=== PATIENT | female | born 1945 | race Caucasian/White ===

== ENCOUNTER 2022-01-08 14:23 | Inpatient (IN) | payer OTHER, BC ==
[2022-01-08] MEDS ORDERED: ALBUTEROL 2.5 MG/3 ML NEB SOL ONE ×2 (14:57→21:13)
[2022-01-08] MEDS ORDERED: LEVALBUTEROL 1.25 MG/3 ML NEB ONE (14:57)
[2022-01-08] MEDS ORDERED: METHYLPREDNISOLONE 125 MG INJ ONE (14:57)
[2022-01-08 15:11] LABS: Absolute Lymphocytes (CBC) 0.2 K/uL (0.7-4.9); Lymphocytes % 2.1 % (15.3-44.8); MCV 98.3 fL (80-100); MPV 8.2 fL (7.6-11.3); RBC Red Blood Cell Count 3.66 M/uL (3.86-4.86)
[2022-01-08 15:24] LABS: Protime INR 1.2
[2022-01-08 15:35] LABS: ALT/SGPT 15 U/L (12-78); AST/SGOT 14 U/L (15-37); Albumin 2.5 g/dL (3.4-5.0); Alkaline Phosphatase 84 U/L (45-117); BUN Blood Urea Nitrogen 32 mg/dL (7-18); Bilirubin Direct 0.2 mg/dL (0-0.2); Bilirubin Total 0.4 mg/dL (0.2-1.0); Glomerular Filtration Rate 96 ml/min (=/>90); Glucose Level 173 mg/dL (74-106); Magnesium 2.3 mg/dL (1.8-2.4); NT PRO-BNP 975 pg/mL (<450); Potassium 4.1 mmol/L (3.5-5.1); Protein, Total 7.4 g/dL (6.4-8.2); Sodium Level 141 mmol/L (136-145); Troponin High Sensitivity 23.1 pg/mL (<58.9)
[2022-01-08 15:38] LABS: Bicarbonate > 45 mmol/L (21-32)
--- NOTE | 2022-01-08 15:55 | RAD REPORT ---
EXAM DESCRIPTION: RAD - Chest Single View - 01/08/2022 3:39 pm CLINICAL HISTORY: SOB Chest pain. COMPARISON: CHEST SINGLE VIEW dated 06/16/2013; CHEST SINGLE VIEW dated 06/15/2013; CHEST PA AND LAT 2 VIEW dated 06/14/2013; CHEST PA AND LAT 2 VIEW dated 10/06/2012 FINDINGS: Portable technique limits examination quality. There is a moderate sized area of lung opacifications in the right upper lobe, likely representing pn eumonia. Mild underlying COPD is present. The heart is normal in size. After appropriate treatment, f ollow-up films to document clearance would be recommended. IMPRESSION: Suspected right upper lobe pneumonia.
[2022-01-08] MEDS ORDERED: Levofloxacin500mg IV 500 MG/100 ML BAG IV ONE (16:32)
--- NOTE | 2022-01-08 17:10 | ER ---
Nurse's Notes [facility] Name: Zina Valdez Age: 76 yrs Sex: Female : 1945 Arrival Date: 01/08/2022 Time: 14:24 Bed 23 Private MD: Diagnosis: Other pneumonia, unspecified organism;COPD/ Chronic obstructive pulmonary disease with acute lower respiratory infection Presentation: 01/08 14:25 Chief complaint: EMS states: SENT FROM DR RITCHIE OFFICE FOR HYPOXIA, 76% ON ROOM AIR. bp Coronavirus screen: At this time, the client does not indicate any symptoms associated with coronavirus-19. Ebola Screen: No symptoms or risks identified at this time. Initial Sepsis Screen: Does the patient meet any 2 criteria? HR > 90 bpm. No. Patient's initial sepsis screen is negative. Does the patient have a suspected source of infection? No. Patient's initial sepsis screen is negative. Risk Assessment: Do you want to hurt yourself or someone else? Patient reports no desire to harm self or others. Onset of symptoms was January 08, 2022. Care prior to arrival: Glucose check: 203. 14:25 Method Of Arrival: EMS: [facility] bp 14:25 Acuity: LUIGI 2 bp Triage Assessment: 14:26 General: Appears distressed, uncomfortable, slender, Behavior is calm, cooperative, bp appropriate for age. Pain: Denies pain. EENT: No deficits noted. Neuro: Level of Consciousness is awake, alert, obeys commands, Oriented to Appropriate for age. Cardiovascular: Rhythm is sinus tachycardia. Respiratory: Reports shortness of breath at rest on exertion Onset: The symptoms/episode began/occurred today, the patient has moderate shortness of breath. GI: No signs and/or symptoms were reported involving the gastrointestinal system. : No signs and/or symptoms were reported regarding the genitourinary system. Derm: No deficits noted. Musculoskeletal: No deficits noted. Historical: - Allergies: 14:26 PENICILLINS; bp 14:26 Iodine; bp - PMHx: 14:26 Chronic obstructive lung disease; bp - Immunization history:: Adult Immunizations up to date. - Social history:: Smoking status: unknown. Screenin:30 Abuse screen: Denies threats or abuse. Denies injuries from another. Nutritional bp screening: No deficits noted. Tuberculosis screening: No symptoms or risk factors identified. Fall Risk None identified. Assessment: 14:30 General: SEE TRIAGE NOTE. bp 14:43 Cardiovascular: No deficits noted. Respiratory: Airway is patent Respiratory effort is jh6 even, labored, Respiratory pattern is regular, symmetrical, Breath sounds with wheezes bilaterally. in right upper lobe, left upper lobe, left posterior upper lobe and right posterior upper lobe. 15:41 General: provider notified of critical bicarb level being >45. ap3 16:10 General: pt placed on BiPAP and tolerated well, O2 stat was 94% with Venti mask at 50% jh6 but not helping overall respiratory difficulty. Vital Signs: 14:25 BP 131 / 69; Pulse 103; Resp 24; Temp 99; Pulse Ox 65% on R/A; bp 15:02 BP 113 / 83; Pulse 101; Resp 20; Pulse Ox 100% on Nebulizer Mask; jh6 16:10 BP 110 / 61; Pulse 117; Resp 20; Pulse Ox 100% on BiPAP; Pain 0/10; jh6 17:00 BP 129 / 67; Pulse 117; Resp 18; Pulse Ox 100% on BiPAP; Weight 54.43 kg; Pain 0/10; jh6 18:00 BP 124 / 71; Pulse 109; Resp 18; Pulse Ox 91% on 4 lpm NC; Pain 0/10; jh6 ED Course: 14:24 Patient arrived in ED. bp 14:26 Ric Turner PA is PHCP. cp 14:26 Ric Rivera MD is Attending Physician. cp 14:26 Triage completed. bp 14:26 Arm band placed on. bp 14:30 Patient has correct armband on for positive identification. Bed in low position. Call bp light in reach. Side rails up X2. 14:39 Abi Hodgson, RN is Primary Nurse. jh6 14:39 Inserted saline lock: 22 gauge in right antecubital area, using aseptic technique. jh6 Blood collected. 15:01 Initial lab(s) drawn, by me, sent to lab. Second set of blood cultures drawn EKG done, jh6 by ED staff, reviewed by Ric Rivera MD COVID swab sent to lab. Flu and/or RSV swab sent to lab. 15:40 XRAY Chest (1 view) In Process Unspecified. EDMS 17:09 Abad Ritchie MD is Hospitalizing Provider. cp 07/01 02:57 No provider procedures requiring assistance completed. Patient admitted, IV remains in as6 place. 07:16 Primary Nurse role handed off by Abi Hodgson, RN jl7 Administered Medications: 01/08 15:00 Drug: SOLU-Medrol (methylPrednisoLONE) 125 mg Route: IVP; Site: right antecubital; jh6 16:30 Follow up: Response: No adverse reaction jh6 15:00 Drug: Xopenex (levalbuterol) (3) 1.25 mg Route: Inhalation; jh6 16:30 Follow up: Response: No adverse reaction jh6 15:01 Drug: AtroVENT (ipratropium) Aerosol 0.5 mg Route: Inhalation; jh6 16:30 Follow up: Response: No adverse reaction jh6 16:30 Drug: LevaQUIN (levofloxacin) 500 mg Volume: 100 ml; Route: IVPB; Infused Over: 60 jh6 mins; Site: right antecubital; 17:00 Follow up: IV Status: Completed infusion jh6 18:47 Drug: vancoMYCIN 500 mg Route: IVPB; Infused Over: 1 hrs; Site: right antecubital; jh6 19:17 Drug: Lovenox (enoxaparin) 1 mg/kg Route: Sub-Q; Site: left lower abdomen; aa9 19:17 Follow up: Response: No adverse reaction aa9 Medication: 14:30 VIS not applicable for this client. bp Outcome: 17:10 Decision to Hospitalize by Provider. 01/09 02:57 Admitted to ER Hold. Please see [facility] for further documentation. as6 Condition: stable Instructed on the need for admit. 14:33 Patient left the ED. ap3 Signatures: Dispatcher [employer] EDMS Ric Turner PA PA cp Leal, Jahala RN RN jl7 Srikanth Jiménez RN RN bp Marycarmen Malone RN RN ap3 Terry Sauer RN RN as6 Abi Hodgson, NATHANIEL ARMSTRONG jh6 Jacey Decker, RN RN aa9
--- NOTE | 2022-01-08 17:10 | EDPHYS ---
Physician Documentation [facility] Name: Zina Valdez Age: 76 yrs Sex: Female : 1945 Arrival Date: 01/08/2022 Time: 14:24 Bed 23 Private MD: ED Physician Ric Rivera HPI: 01/08 14:40 This 76 yrs old Female presents to ER via EMS with complaints of Shortness Of Breath. cp 14:40 The patient has shortness of breath at rest. cp 14:40 Onset: The symptoms/episode began/occurred gradually. cp 14:40 Duration: The symptoms are continuous, and are steadily getting worse. Associated signs cp and symptoms: Pertinent negatives: chest pain, productive cough, diaphoresis, fever, hemoptysis. Severity of symptoms: in the emergency department the symptoms are unchanged despite home interventions. Historical: - Allergies: 14:26 PENICILLINS; bp 14:26 Iodine; bp - PMHx: 14:26 Chronic obstructive lung disease; bp - Immunization history:: Adult Immunizations up to date. - Social history:: Smoking status: unknown. ROS: 14:45 Constitutional: Negative for fever. cp 14:45 Eyes: Negative for injury, pain, redness, and discharge. cp 14:45 ENT: Negative for drainage from ear(s), ear pain, sore throat, difficulty swallowing, difficulty handling secretions. 14:45 Cardiovascular: Negative for chest pain, edema. 14:45 Respiratory: Positive for cough, "sounds productive", shortness of breath, at rest. Negative for wheezing. 14:45 Abdomen/GI: Negative for abdominal pain, vomiting, diarrhea, constipation. 14:45 Back: Negative for pain at rest, pain with movement. 14:45 : Negative for urinary symptoms. 14:45 Skin: Negative for cellulitis, rash. 14:45 Neuro: Negative for altered mental status, headache, syncope, weakness. 14:45 All other systems are negative. Exam: 14:42 ECG was reviewed by the Attending Physician. cp 14:50 Constitutional: The patient appears alert, awake, non-diaphoretic, non-toxic, well cp developed, well nourished, in obvious distress, moderately distressed. 14:50 Head/Face: Normocephalic, atraumatic. cp 14:50 Eyes: Periorbital structures: appear normal, Conjunctiva: normal, no exudate, no injection, Sclera: no appreciated abnormality, Lids and lashes: appear normal, bilaterally. 14:50 ENT: External ear(s): are unremarkable, Nose: is normal, Mouth: Lips: moist, Oral mucosa: moist, Posterior pharynx: Airway: no evidence of obstruction, patent. 14:50 Neck: ROM/movement: is normal, is supple, without pain, no range of motions limitations, no meningismus. 14:50 Chest/axilla: Inspection: normal, Palpation: is normal, no crepitus, no tenderness. 14:50 Cardiovascular: Rate: tachycardic, Rhythm: regular, Edema: is not appreciated, JVD: is not appreciated. 14:50 Respiratory: moderate respiratory distress is noted, Respirations: shallow respirations, that is moderate, Breath sounds: decreased breath sounds, that are moderate, throughout, stridor, is not appreciated, wheezing: that is mild, is heard diffusely, Respiratory rate: 25 14:50 Abdomen/GI: Inspection: abdomen appears normal, Palpation: abdomen is soft and non-tender, in all quadrants. 14:50 Back: pain, is absent, ROM is normal. 14:50 Skin: cellulitis, is not appreciated, no rash present. 14:50 Neuro: Orientation: to person, place \\T\\ time. Mentation: able to follow commands, slow to respond, Motor: moves all fours, general weakness with no focal deficits, Sensation: no obvious gross deficits. Vital Signs: 14:25 BP 131 / 69; Pulse 103; Resp 24; Temp 99; Pulse Ox 65% on R/A; bp 15:02 BP 113 / 83; Pulse 101; Resp 20; Pulse Ox 100% on Nebulizer Mask; jh6 16:10 BP 110 / 61; Pulse 117; Resp 20; Pulse Ox 100% on BiPAP; Pain 0/10; jh6 17:00 BP 129 / 67; Pulse 117; Resp 18; Pulse Ox 100% on BiPAP; Weight 54.43 kg; Pain 0/10; jh6 18:00 BP 124 / 71; Pulse 109; Resp 18; Pulse Ox 91% on 4 lpm NC; Pain 0/10; jh6 MDM: 14:26 Patient medically screened. [facility] 17:05 Data reviewed: vital signs, nurses notes, lab test result(s), EKG, radiologic studies, cp plain films, I have discussed the patient's presentation/case with the attending Emergency Department Physician; and as a result, I will admit patient. 17:05 Antibiotic administration: Levaquin. Data interpreted: director of casework services: rhythm is normal sinus rhythm, Pulse oximetry: on BIPAP is 100 %. Interpretation: acceptable, Plan: will plan to intubate. Test interpretation: by ED physician or midlevel provider: ECG, plain radiologic studies. 17:08 Physician consultation: Abad Ritchie MD was called at 17:08, left message on voicemail. cp 17:40 Physician consultation: Abad Ritchie MD was called at 17:40, left message on voicemail. cp 18:55 Physician consultation: Abad Ritcihe MD was contacted at 18:50, regarding admission, to the ICU, patient's condition, would like further tests performed, CT scan. 01/08 14:40 Order name: Basic Metabolic Panel; Complete Time: 15:41 01/08 16:19 Interpretation: Normal except: CL 93; CO2 > 45; GLUC 173; BUN 32; CRE 0.52. 01/08 14:40 Order name: CBC with Diff; Complete Time: 15:41 01/08 16:20 Interpretation: Normal except: RBC 3.66; HGB 11.1; MCHC 30.8; MIRIAM% 87.3; LYM% 2.1; NEUT cp A 8.3; LYMA 0.2. 01/08 14:40 Order name: LFT's; Complete Time: 15:41 01/08 14:40 Order name: Magnesium; Complete Time: 15:41 01/08 14:40 Order name: NT PRO-BNP; Complete Time: 15:41 01/08 14:40 Order name: PT-INR; Complete Time: 15:41 01/08 14:40 Order name: Troponin HS; Complete Time: 15:41 01/08 14:40 Order name: COVID-19 SARS RT PCR (Document "Date of Onset" if Symptomatic); Complete cp Time: 16:58 01/08 16:58 Interpretation: Reviewed. 01/08 14:40 Order name: Influenza Screen (a \\T\\ B); Complete Time: 16:03 01/08 14:40 Order name: Lactate; Complete Time: 16:03 cp 01/08 14:40 Order name: Procalcitonin; Complete Time: 16:03 cp 01/08 14:40 Order name: Blood Culture Adult (2) cp 01/08 18:38 Order name: ABG; Complete Time: 20:41 cp 01/08 18:54 Order name: Sputum Culture 01/08 14:40 Order name: XRAY Chest (1 view); Complete Time: 16:03 cp 01/08 16:03 Order name: BIPAP cp 01/08 18:54 Order name: CT Chest Wo Con cp 01/08 20:00 Order name: CT; Complete Time: 20:41 EDMS 01/08 20:41 Interpretation: Report reviewed. 01/08 21:21 Order name: Vancomycin Peak; Complete Time: 04:21 EDMS 01/08 21:21 Order name: Vancomycin Level Trough; Complete Time: 04:21 EDMS 01/09 05:03 Order name: CBC with Automated Diff EDMS 01/09 05:36 Order name: Basic Metabolic Panel EDMS 01/09 05:36 Order name: Lipid Profile EDMS 01/09 05:36 Order name: Magnesium EDMS 01/08 14:40 Order name: EKG; Complete Time: 14:41 cp 01/08 14:40 Order name: Cardiac monitoring; Complete Time: 15:01 cp 01/08 14:40 Order name: EKG - Nurse/Tech; Complete Time: 15:01 cp 01/08 14:40 Order name: IV Saline Lock; Complete Time: 15:01 cp 01/08 14:40 Order name: Labs collected and sent; Complete Time: 15:01 cp 01/08 14:40 Order name: O2 Per Protocol; Complete Time: 15:01 cp 01/08 14:40 Order name: O2 Sat Monitoring; Complete Time: 15:01 cp 01/08 17:14 Order name: Diet Heart Healthy; Complete Time: 17:15 em1 01/08 19:01 Order name: CONS Physician Consult EDMS EC:42 Rate is 107 beats/min. Rhythm is regular. IL interval is normal. QRS interval is cp normal. QT interval is normal. T waves are Inverted in leads III, aVR. Interpreted by me. Reviewed by me. Administered Medications: 15:00 Drug: SOLU-Medrol (methylPrednisoLONE) 125 mg Route: IVP; Site: right antecubital; jh6 16:30 Follow up: Response: No adverse reaction jh6 15:00 Drug: Xopenex (levalbuterol) (3) 1.25 mg Route: Inhalation; jh6 16:30 Follow up: Response: No adverse reaction jh6 15:01 Drug: AtroVENT (ipratropium) Aerosol 0.5 mg Route: Inhalation; jh6 16:30 Follow up: Response: No adverse reaction jh6 16:30 Drug: LevaQUIN (levofloxacin) 500 mg Volume: 100 ml; Route: IVPB; Infused Over: 60 jh6 mins; Site: right antecubital; 17:00 Follow up: IV Status: Completed infusion jh6 18:47 Drug: vancoMYCIN 500 mg Route: IVPB; Infused Over: 1 hrs; Site: right antecubital; jh6 19:17 Drug: Lovenox (enoxaparin) 1 mg/kg Route: Sub-Q; Site: left lower abdomen; aa9 19:17 Follow up: Response: No adverse reaction aa9 Disposition Summary: 01/08/22 17:10 Hospitalization Ordered Hospitalization Status: Inpatient Admission cp Provider: Abad Ritchie cp Condition: Fair cp Problem: new cp Symptoms: have improved cp Bed/Room Type: Standard cp Location: Telemetry/MedSurg (Inpatient)(01/09/22 13:20) eb Room Assignment: (01/09/22 13:20) eb Diagnosis - Other pneumonia, unspecified organism cp - COPD/ Chronic obstructive pulmonary disease with acute lower respiratory infection cp Forms: - Medication Reconciliation Form cp - SBAR form cp Addendum: 01/25/2022 14:53 Co-signature as Attending Physician, Ric Rivera MD I agree with the assessment and c bustamante plan of care. Signatures: Dispatcher [employer] EDLeticia Gomez RN RN mw Anderson, Corey, MD MD cha Page, Corey, PA PA cp Peltier, Brian, RN RN bp Botello, Elizabeth eb Patel, Setul, MD MD sp3 Abi Hodgson RN RN jh6 Jacey Decker RN RN aa9 Corrections: (The following items were deleted from the chart) 01/08 17:44 17:10 Telemetry/MedSurg (Inpatient) cp cp 17:44 17:10 cp cp 19:34 17:44 Intensive Care Unit cp mw 19:34 17:44 cp mw 01/09 13:20 01/08 19:34 [facility] ER HOLD mw eb 01/09 13:20 01/08 19:34 ERHOLD- mw eb
[2022-01-08] MEDS ORDERED: VANCOMYCIN 500 MG/VIAL ONE (18:47)
[2022-01-08] MEDS ORDERED: NA CHLORIDE 0.9% 250 ML ONE (18:47)
[2022-01-08] MEDS ORDERED: ONDANSETRON 4 MG/2 ML VIAL IV PRN (19:00)
[2022-01-08] MEDS ORDERED: IPRATROPIUM BROM 0.5MG/2.5ML NEB SCH (19:00)
[2022-01-08 19:13] LABS: Arterial Blood Carboxyhemoglob 1.6 % (0-1.5); Blood Gas Oxyhemoglobin 93.6 % (94-97); Blood O2 Saturation 96.2 % (92-98.5)
[2022-01-08] MEDS ORDERED: ENOXAPARIN 60 MG/0.6 ML SQ ONE (19:18)
--- NOTE | 2022-01-08 19:58 | RAD REPORT ---
EXAM DESCRIPTION: CT - Thorax Wo Con CLINICAL HISTORY: Chest pain Pneumonia, unresolved COMPARISON: THORAX WO CONTRAST dated 06/14/2013 FINDINGS: There is a large area of consolidation with internal areas of lucency in the right upper l obe most likely representing infection/pneumonia. Diffuse prominent COPD is present. No pleural thick ening or pleural effusion. No pneumothorax. No axillary, mediastinal or hilar adenopathy. Evaluation of the hilar structures is limited due to la ck of IV contrast. No concerning bony finding. No gross upper abdominal finding. All CT scans are performed using dose optimization technique as appropriate and may include automated exposure control or mA/KV adjustment according to patient size. IMPRESSION: Large area of consolidation in the right upper lobe areas of internal cavitation likely representing bronchopneumonia. An obstructing hilar mass is not seen nor is endobronchial obstruction evident. However, hilar assessment is limited by the lack of intravenous contrast.
--- NOTE | 2022-01-08 20:51 | P.HP ---
Certification for Inpatient Patient admitted to: Inpatient With expected LOS: >2 Midnights Practitioner: I am a practitioner with admitting privileges, knowledge of patient current condition, hospital course, and medical plan of care. Services: Services provided to patient in accordance with Admission requirements found in Title 42 Section 412.3 of the Code of Federal Regulations Patient History Date of Service: 01/08/22 Reason for admission: SHORT OF BREATH History of Present Illness: MS. VARELA COMES IN TODAY FOR SEVERE DYSPNEA. LAST TIME I SAW HER WAS IN MAY. SHE HAS BEEN TO DR. JAMES ROUTINELY. SHE LOOKED VISBILEY DYSPNEIC, HAD HYPOXIA, AND SEVERELY DISTRESSED. I AM SURPRISED SHE CAME TO OFFICE LIKE THIS WITH FAMILY. THEY HAD HARD TIME GETTING HER OUT OF CAR. DAUGHTER IN LAW CAME WITH HER. I FOUND HER NEEDING ADMISSION SO WE CALLED IN AMBULANCE TO PICK HER UP AND TAKE TO ER. ER PROVIDER FOUND HER TO HAVE LARGE PNEUMONIA. STARTED ON LEVAQUIN AND VANCOMYIN. I ASKED FO RCT THAT DID NOT SHOW TUMOR. Allergies iodine Allergy (Intermediate, Verified 06/14/13 23:07) Hives/Rash Penicillins Allergy (Intermediate, Verified 06/14/13 23:09) Itching/Hives/Rash Home medications list reviewed: Yes Home Medications: Ascorbic Acid [Vitamin C*] 500 mg PO BID 06/14/13 Cholecalciferol (Vitamin D3) [Vitamin D3] 1,000 unit PO 06/14/13 Cyanocobalamin (Vitamin B-12) [Liquid B-12] 1,000 mcg PO DAILY 06/14/13 Duoneb 1 IH Q6H 06/19/13 Fluticasone/Salmeterol [Advair 250/50 Diskus*] 1 puff IH BID #1 disk 06/19/13 L. Acidophilus/Pectin, [place] [Acidophilus Caplet] 1 each PO TID #0 tablet 06/19/13 Neomy Sulf/Bacitrac Zn/Poly [Triple Antibiotic Ointment] 30 gm TP QID #0 oint. ..g. 06/19/13 predniSONE [Deltasone*] 10 mg PO BID #20 tab 06/19/13 - Past Medical/Surgical History Diabetic: No - Social History Alcohol use: No CD- Drugs: No Caffeine use: Yes Review of Systems 10-point ROS is otherwise unremarkable General: Weakness, Malaise Respiratory: Shortness of Breath Physical Examination - Physical Exam General: Alert, Oriented x3, Cachectic, Moderate distress HEENT: Atraumatic, PERRLA, Mucous membr. moist/pink, EOMI, Sclerae nonicteric Neck: Supple, 2+ carotid pulse no bruit, No LAD, Without JVD or thyroid abnormality Respiratory: Clear to auscultation bilaterally, Normal air movement Cardiovascular: Regular rate/rhythm, Normal S1 S2 Gastrointestinal: Normal bowel sounds, No tenderness Musculoskeletal: No tenderness Integumentary: No rashes Neurological: Normal gait, Normal speech, Normal strength at 5/5 x4 extr, Normal tone, Normal affect Lymphatics: No axilla or inguinal lymphadenopathy - Studies Laboratory Data (last 24 hrs) 01/08/22 14:52: PT 13.3 H, INR 1.20 01/08/22 14:52: WBC 9.6, Hgb 11.1 L, Hct 36.0, Plt Count 406 01/08/22 14:52: Sodium 141, Potassium 4.1, BUN 32 H, Creatinine 0.52 L, Glucose 173 H, Magnesium 2.3, Total Bilirubin 0.4, AST 14 L, ALT 15, Alkaline Phosphatase 84 Microbiology Data (last 24 hrs): 01/08/22 14:52 Nasopharnyx Influenza Type A Antigen Screen - Final 01/08/22 14:52 Nasopharnyx Influenza Type B Antigen Screen - Final Assessment and Plan - Problems (Diagnosis) (1) Bacterial pneumonia Current Visit: Yes Status: Acute Plan: AGREE WITH LEVAQUIN AND VANCOMYCIN SHE IS ALLERGIC PCN. I ASKED FOR SPUTUM CULTURE BY RT. (2) COPD with hypoxia Current Visit: Yes Status: Chronic Plan: SHE NOW HAS SEVERE HYPERCAPNEA WITH COMPENSATORY HYPERCARBIA. PROGNOSIS IS POOR. SHE SHOULD BE DNR. SHE AGREES TO INTUBATION BUT NO RESUSCITATION. (3) Hypercarbia Current Visit: Yes Status: Acute - Advance Directives Does patient have a Living Will: No Does patient have a Durable POA for Healthcare: No
[2022-01-08] MEDS: ALBUTEROL 2.5 MG/3 ML NEB SOL NEB SCH (21:10)
[2022-01-08] MEDS: IPRATROPIUM BROM 0.5MG/2.5ML NEB SCH (21:10)
[2022-01-08] MEDS ORDERED: IPRATROPIUM BROM 0.5MG/2.5ML ONE (21:13)
[2022-01-08] MEDS ORDERED: VANCOMYCIN 1 GM in NA CHLORIDE 0.9% 250 ML IVPB ONE (21:30)
[2022-01-08] MEDS ORDERED: FAMOTIDINE 20 MG/2 ML VIAL IV ONE (21:30)
[2022-01-09] MEDS: IPRATROPIUM BROM 0.5MG/2.5ML NEB SCH ×4 (02:05→19:30)
[2022-01-09] MEDS: ALBUTEROL 2.5 MG/3 ML NEB SOL NEB SCH ×4 (02:05→19:30)
[2022-01-09] MEDS ORDERED: IPRATROPIUM BROM 0.5MG/2.5ML ONE ×2 (02:06→12:18)
[2022-01-09] MEDS ORDERED: ALBUTEROL 2.5 MG/3 ML NEB SOL ONE ×2 (02:06→12:17)
[2022-01-09 03:01] VITALS: BMI 22.6
[2022-01-09 04:44] LABS: Absolute Lymphocytes (CBC) 0.2 K/uL (0.7-4.9); Hematocrit 31.4 % (36.0-45.0); Lymphocytes % 3.2 % (15.3-44.8); MCV 97.5 fL (80-100); MPV 8.1 fL (7.6-11.3); RBC Red Blood Cell Count 3.22 M/uL (3.86-4.86)
[2022-01-09 05:36] LABS: BUN Blood Urea Nitrogen 28 mg/dL (7-18); Bicarbonate > 45 mmol/L (21-32); Glomerular Filtration Rate 108 ml/min (=/>90); Glucose Level 137 mg/dL (74-106); HDL Cholesterol 63 mg/dL (40-60); LDL Cholesterol, Calculated 103 mg/dL (<130); Magnesium 2.3 mg/dL (1.8-2.4); Potassium 4.2 mmol/L (3.5-5.1); Sodium Level 141 mmol/L (136-145)
[2022-01-09] MEDS ORDERED: NACHLORIDE 0.45% 1,000 ML IV SCH (07:00)
[2022-01-09] MEDS ORDERED: ASPIRIN EC 81 MG TAB PO ONE (08:43)
[2022-01-09] MEDS ORDERED: FAMOTIDINE 20 MG/2 ML VIAL IV ONE (08:44)
[2022-01-09] MEDS ORDERED: NACHLORIDE 0.45% 1,000 ML IV ONE (08:44)
[2022-01-09] MEDS ORDERED: ENOXAPARIN 40 MG/0.4 ML SQ ONE (08:44)
[2022-01-09] MEDS: ASPIRIN EC 81 MG TAB PO SCH (08:45)
[2022-01-09] MEDS: ENOXAPARIN 40 MG/0.4 ML SQ SCH (08:45)
[2022-01-09] MEDS ORDERED: FAMOTIDINE 20 MG/2 ML VIAL IV SCH (09:00)
[2022-01-09] MEDS ORDERED: VANCOMYCIN 500 MG in NA CHLORIDE 0.9% 100 ML IVPB SCH (09:00)
--- NOTE | 2022-01-09 09:51 | EKG ---
Test Date: 2022-01-08 Test Time: 14:36:56 Lead Care Manager: TYRONE MEASUREMENT RESULTS: Intervals: Rate: 107 [place]: 94 QRSD: 86 QT: 338 QTc: 451 [place]: P: 70 [place]: 94 QRS: 72 T: 12 INTERPRETIVE STATEMENTS: Sinus tachycardia with short [place] Minimal voltage criteria for LVH, may be normal variant Borderline ECG Compared to ECG 06/15/2013 22:46:07 Short [place] interval now present Left ventricular hypertrophy now present Atrial abnormality no longer present Right ventricular hypertrophy no longer present T-wave abnormality no longer present Possible ischemia no longer present Electronically Signed On 01-09-22 09:48:40 CDT by Cody Hoffmann
[2022-01-09] MEDS: NACHLORIDE 0.45% 1,000 ML IV SCH (12:19)
--- NOTE | 2022-01-09 12:21 | P.CNS ---
Date of Consult: 01/09/22 Reason for Consult: Respiratory failure right upper lobe pneumonia Chief Complaint: Respiratory failure right upper lobe pneumonia History of Present Illness: Patient is 76 years of age well-known to me she has a history of severe terminal COPD admitted with 3-day history of worsening dyspnea came in with respiratory failure acute right upper lobe pneumonia pliant with therapy at home currently on BiPAP Allergies iodine Allergy (Intermediate, Verified 06/14/13 23:07) Hives/Rash Penicillins Allergy (Intermediate, Verified 06/14/13 23:09) Itching/Hives/Rash Home Medications: Ascorbic Acid [Vitamin C*] 500 mg PO BID 06/14/13 Cholecalciferol (Vitamin D3) [Vitamin D3] 1,000 unit PO 06/14/13 Cyanocobalamin (Vitamin B-12) [Liquid B-12] 1,000 mcg PO DAILY 06/14/13 Duoneb 1 IH Q6H 06/19/13 Fluticasone/Salmeterol [Advair 250/50 Diskus*] 1 puff IH BID #1 disk 06/19/13 L. Acidophilus/Pectin, [place] [Acidophilus Caplet] 1 each PO TID #0 tablet 06/19/13 Neomy Sulf/Bacitrac Zn/Poly [Triple Antibiotic Ointment] 30 gm TP QID #0 oint...g. 06/19/13 predniSONE [Deltasone*] 10 mg PO BID #20 tab 06/19/13 - Past Medical/Surgical History Diabetic: No -: Severe terminal COPD - Social History Smoking Status: Former smoker Alcohol use: No CD- Drugs: No Caffeine use: Yes Review of Systems 10-point ROS is otherwise unremarkable General: Weakness Respiratory: Cough, Shortness of Breath Physical Examination Temp Pulse Resp BP Pulse Ox 97.8 F 77 21 H 124/71 95 01/09/22 08:00 01/09/22 11:00 01/09/22 11:00 01/09/22 11:00 01/09/22 11:00 General: Alert, In no apparent distress, Mild distress Respiratory: Crackles/rales Cardiovascular: Normal S1 S2 (Crackles on the right upper zone) Gastrointestinal: Normal bowel sounds, Soft and benign Laboratory Data (last 24 hrs) 01/08/22 14:52: PT 13.3 H, INR 1.20 01/08/22 14:52: WBC 9.6, Hgb 11.1 L, Hct 36.0, Plt Count 406 01/08/22 14:52: Sodium 141, Potassium 4.1, BUN 32 H, Creatinine 0.52 L, Glucose 173 H, Magnesium 2.3, Total Bilirubin 0.4, AST 14 L, ALT 15, Alkaline Phosphatase 84 - Problems (1) Respiratory failure with hypercapnia Current Visit: Yes Status: Acute Plan: Patient is 76 years of age terminal COPD admitted with hypoxic hypercapnic respiratory failure currently on BiPAP Acute right upper lobe pneumonia bicarbonate is very elevated I suspect she is chronically hypercapnic to evaluate her for noninvasive ventilator when she is recovered add some Diamox IV fluids continue with nebulizers steroids increase IV levofloxacin to 750 mg daily patient's bicarbonate level is very elevated Qualifiers: Chronicity: acute on chronic Qualified Code(s): J96.22 - Acute and chronic respiratory failure with hypercapnia
[2022-01-09] MEDS: Levofloxacin 750mg IV 750 MG/150 ML BAG IV SCH (12:58)
[2022-01-09] MEDS ORDERED: Levofloxacin 750mg IV 750 MG/150 ML BAG IV ONE (13:05)
--- NOTE | 2022-01-09 13:28 | P.PN ---
Subjective Date of Service: 01/09/22 Chief Complaint: Respiratory failure right upper lobe pneumonia Subjective: Improving SHE LOOKS LOT MORE COMFORTABLE THAN BEFORE. SHE IS WONDERING WHY SHE HAS TO STAY HERE. Physical Examination - Vital Signs Temperature: 97.8 F Blood Pressure: 127/79 Pulse: 91 Respirations: 21 Pulse Ox (%): 94 - Physical Exam General: Oriented x3, Cachectic, Mild distress, Moderate distress HEENT: Atraumatic, PERRLA, EOMI Neck: Supple, JVD not distended Respiratory: Diminished Cardiovascular: Regular rate/rhythm, Normal S1 S2 Gastrointestinal: Normal bowel sounds, No tenderness Musculoskeletal: No tenderness Integumentary: No rashes Neurological: Normal speech, Normal tone, Normal affect Lymphatics: No axilla or inguinal lymphadenopathy - Studies Laboratory Data (last 24 hrs) 01/08/22 14:52: PT 13.3 H, INR 1.20 01/08/22 14:52: WBC 9.6, Hgb 11.1 L, Hct 36.0, Plt Count 406 01/08/22 14:52: Sodium 141, Potassium 4.1, BUN 32 H, Creatinine 0.52 L, Glucose 173 H, Magnesium 2.3, Total Bilirubin 0.4, AST 14 L, ALT 15, Alkaline Phosphatase 84 Microbiology Data (last 24 hrs): 01/08/22 14:52 Nasopharnyx Influenza Type A Antigen Screen - Final 01/08/22 14:52 Nasopharnyx Influenza Type B Antigen Screen - Final Medications List Reviewed: Yes Assessment And Plan - Current Problems (Diagnosis) (1) Bacterial pneumonia Current Visit: Yes Status: Acute Plan: AGREE WITH LEVAQUIN AND VANCOMYCIN SHE IS ALLERGIC PCN. I ASKED FOR SPUTUM CULTURE BY RT. DR JAMES HAS SEEN PATIENT. CONTINEU MEDS. ADDED DIAMOX FOR ACIDODSIS. (2) COPD with hypoxia Current Visit: Yes Status: Chronic Plan: SHE NOW HAS SEVERE HYPERCAPNEA WITH COMPENSATORY HYPERCARBIA. PROGNOSIS IS POOR. SHE SHOULD BE DNR. SHE AGREES TO INTUBATION BUT NO RESUSCITATION. (3) Hypercarbia Current Visit: Yes Status: Acute
[2022-01-09] MEDS: VANCOMYCIN 1 GM in NA CHLORIDE 0.9% 250 ML IVPB SCH (16:19)
[2022-01-09] MEDS ORDERED: Levofloxacin500mg IV 500 MG/100 ML BAG IV SCH (17:00)
[2022-01-09 17:12] LABS: Arterial Blood Carboxyhemoglob 1.3 % (0-1.5); Blood Gas Oxyhemoglobin 89.6 % (94-97); Blood O2 Saturation 91.8 % (92-98.5)
[2022-01-09] MEDS: ACETAZOLAMIDE 500 MG IV IV SCH (21:42)
[2022-01-10] MEDS: IPRATROPIUM BROM 0.5MG/2.5ML NEB SCH ×4 (01:15→19:35)
[2022-01-10] MEDS: ALBUTEROL 2.5 MG/3 ML NEB SOL NEB SCH ×4 (01:15→19:35)
[2022-01-10] MEDS: NACHLORIDE 0.45% 1,000 ML IV SCH ×2 (03:26→10:01)
[2022-01-10 06:15] LABS: Potassium 4.1 mmol/L (3.5-5.1)
[2022-01-10] MEDS: VANCOMYCIN 1 GM in NA CHLORIDE 0.9% 250 ML IVPB SCH (09:11)
[2022-01-10] MEDS: ASPIRIN EC 81 MG TAB PO SCH (09:11)
[2022-01-10] MEDS: ENOXAPARIN 40 MG/0.4 ML SQ SCH (09:12)
[2022-01-10] MEDS: ACETAZOLAMIDE 500 MG IV IV SCH (10:01)
[2022-01-10] MEDS ORDERED: WATER FOR INJ,STERILE 10 ML ONE (10:05)
--- NOTE | 2022-01-10 10:06 | P.PN ---
Subjective Date of Service: 01/10/22 Chief Complaint: Respiratory failure right upper lobe pneumonia Subjective: Improving (Patient has improved doing better oxygen requirements have declined) Review of Systems General: Weakness Respiratory: Cough, Shortness of Breath Physical Examination - Vital Signs Temperature: 98.1 F Blood Pressure: 140/65 Pulse: 90 Respirations: 18 Pulse Ox (%): 92 - Physical Exam General: Alert, Oriented x3, Mild distress Respiratory: Crackles/rales (Crackles in the right upper lobe) Cardiovascular: No edema, Regular rate/rhythm Gastrointestinal: Normal bowel sounds, Soft and benign - Studies Medications List Reviewed: Yes Assessment And Plan - Current Problems (Diagnosis) (1) Respiratory failure with hypercapnia Current Visit: Yes Status: Acute Plan: Patient admitted with severe community-acquired pneumonia respiratory failure compensatory alkalosis continue with IV fluids hold Diamox for now DC vancomycin continue with high-dose levofloxacin titrate sat to 90% Qualifiers: Chronicity: acute on chronic Qualified Code(s): J96.22 - Acute and chronic respiratory failure with hypercapnia
[2022-01-10] MEDS: Levofloxacin 750mg IV 750 MG/150 ML BAG IV SCH (13:26)
--- NOTE | 2022-01-10 15:51 | P.PN ---
Subjective Date of Service: 01/10/22 Chief Complaint: Respiratory failure right upper lobe pneumonia Subjective: Improving SHE LOOKS LOT MORE COMFORTABLE THAN BEFORE. SHE IS WONDERING WHY SHE HAS TO STAY HERE. SHE IS WEAK BUT LOOKING BETTER. Physical Examination - Vital Signs Temperature: 98.1 F Blood Pressure: 140/65 Pulse: 90 Respirations: 18 Pulse Ox (%): 92 - Physical Exam General: Mild distress, Moderate distress HEENT: Atraumatic, PERRLA, EOMI Neck: Supple, JVD not distended Respiratory: Clear to auscultation bilaterally, Normal air movement Cardiovascular: Regular rate/rhythm, Normal S1 S2 Gastrointestinal: Normal bowel sounds, No tenderness Musculoskeletal: No tenderness Integumentary: No rashes Neurological: Normal speech, Normal tone, Normal affect Lymphatics: No axilla or inguinal lymphadenopathy - Studies Medications List Reviewed: Yes Assessment And Plan - Current Problems (Diagnosis) (1) Bacterial pneumonia Current Visit: Yes Status: Acute Plan: AGREE WITH LEVAQUIN AND VANCOMYCIN SHE IS ALLERGIC PCN. I ASKED FOR SPUTUM CULTURE BY RT. DR JAMES HAS SEEN PATIENT. CONTINEU MEDS. ADDED DIAMOX FOR ACIDODSIS. (2) COPD with hypoxia Current Visit: Yes Status: Chronic Plan: SHE NOW HAS SEVERE HYPERCAPNEA WITH COMPENSATORY HYPERCARBIA. PROGNOSIS IS POOR. SHE SHOULD BE DNR. SHE AGREES TO INTUBATION BUT NO RESUSCITATION. PCO2 HAS IMPROVED. CONT GENTLE HYDRATION AND DIAMOX FOR SEVERE COMPENSATED RESPIRATORY ACIDOSIS. (3) Hypercarbia Current Visit: Yes Status: Acute
[2022-01-11] MEDS: ALBUTEROL 2.5 MG/3 ML NEB SOL NEB SCH ×4 (01:10→20:05)
[2022-01-11] MEDS: IPRATROPIUM BROM 0.5MG/2.5ML NEB SCH ×4 (01:10→20:05)
[2022-01-11] MEDS: NACHLORIDE 0.45% 1,000 ML IV SCH ×2 (01:48→17:18)
--- NOTE | 2022-01-11 08:35 | RAD REPORT ---
EXAM DESCRIPTION: RAD - Chest Single View - 01/11/2022 8:16 am CLINICAL HISTORY: sob COMPARISON: CT chest January 08, portable chest January 08 TECHNIQUE: AP portable chest image was obtained 01/11/2022 8:16 am . FINDINGS: Dense opacification of the right apex is present and stable. CT imaging showed dense paren chymal consolidation with numerous air-filled cystic cavities throughout the right upper lung field. Prominent COPD changes are present elsewhere in the lung parenchyma. No new lung parenchymal process seen. Heart and vasculature are normal. No measurable pleural effusion and no pneumothorax. No acute bony abnormality seen. No acute aortic findings suspected. IMPRESSION: Dense right upper lobe consolidation with numerous air-filled cystic cavities noted and stable. Prominent baseline COPD with no new or progressive finding.
[2022-01-11] MEDS: ENOXAPARIN 40 MG/0.4 ML SQ SCH (08:52)
[2022-01-11] MEDS: ASPIRIN EC 81 MG TAB PO SCH (08:52)
[2022-01-11] MEDS: Meropenem 500 MG in NA CHLORIDE 0.9% 100 ML IV SCH ×2 (08:57→16:28)
--- NOTE | 2022-01-11 10:02 | P.PN ---
Subjective Date of Service: 01/11/22 Chief Complaint: Respiratory failure right upper lobe pneumonia Subjective: Worsening (Patient's condition worsened and she became unresponsive developed hypercapnia has back on BiPAP) Review of Systems is unable to be obtained Physical Examination - Vital Signs Temperature: 97.5 F Blood Pressure: 125/60 Pulse: 102 Respirations: 20 Pulse Ox (%): 82 - Physical Exam General: Unresponsive Respiratory: Dull (In the right upper lobe), Crackles/rales Cardiovascular: No edema, Regular rate/rhythm, Normal S1 S2 - Studies Medications List Reviewed: Yes Assessment And Plan - Current Problems (Diagnosis) (1) Respiratory failure with hypercapnia Current Visit: Yes Status: Acute Plan: Patient admitted with severe community-acquired pneumonia hypoxic hypercapnic respiratory failure blood cultures are negative she has terminal COPD now on meropenem blood cultures all negative plan to continue with BiPAP titrate sat to 90% recheck ABGs nasogastric tube feeds resume vancomycin elevated for DNR chest x-ray shows complete right upper lobe consolidation blood culture still negative prognosis poor Qualifiers: Chronicity: acute on chronic Qualified Code(s): J96.22 - Acute and chronic respiratory failure with hypercapnia
[2022-01-11 10:20] LABS: Arterial Blood Carboxyhemoglob 1.3 % (0-1.5); Blood Gas Oxyhemoglobin 85.9 % (94-97); Blood O2 Saturation 88.1 % (92-98.5)
[2022-01-11] MEDS ORDERED: VANCOMYCIN 1.25 GM in NA CHLORIDE 0.9% 250 ML IVPB ONE (11:00)
[2022-01-11] MEDS: METHYLPREDNISOLONE 40 MG INJ IV SCH ×2 (11:34→17:18)
[2022-01-11 14:42] LABS: Arterial Blood Carboxyhemoglob 1.4 % (0-1.5); Blood O2 Saturation 88.2 % (92-98.5)
[2022-01-11 21:01] VITALS: BP 106/53; TEMP 97.1
--- NOTE | 2022-01-11 21:07 | P.DS ---
Admission Date: 01/08/22 Discharge Date: 01/11/22 Disposition: HOSPICE-MEDICAL FACILITY Discharge Condition: SERIOUS Reason for Admission: Respiratory failure right upper lobe pneumonia - Problems (1) Bacterial pneumonia Current Visit: Yes Status: Acute (2) COPD with hypoxia Current Visit: Yes Status: Chronic (3) Hypercarbia Current Visit: Yes Status: Acute Brief History of Present Illness: MS. VARELA COMES IN TODAY FOR SEVERE DYSPNEA. LAST TIME I SAW HER WAS IN MAY. SHE HAS BEEN TO DR. JAMES ROUTINELY. SHE LOOKED VISBILEY DYSPNEIC, HAD HYPOXIA, AND SEVERELY DISTRESSED. I AM SURPRISED SHE CAME TO OFFICE LIKE THIS WITH FAMILY. THEY HAD HARD TIME GETTING HER OUT OF CAR. DAUGHTER IN LAW CAME WITH HER. I FOUND HER NEEDING ADMISSION SO WE CALLED IN AMBULANCE TO PICK HER UP AND TAKE TO ER. ER PROVIDER FOUND HER TO HAVE LARGE PNEUMONIA. STARTED ON LEVAQUIN AND VANCOMYIN. I ASKED FO RCT THAT DID NOT SHOW TUMOR. Hospital Course: MS VARELA HAS SEVERE COPD AND HAS LARGE PNEUMONIA. SHE FAILED TO IMPROVE ON ANTIBIOTICS. HER FRAIL BODY IS NOT ABLE TO SURVIVE WITH SEVERE COPD. SHE HAS HYPERCAPNEA MORE THAN 100MM OF CO2 FOR NOW. SHE IS NOT WAKING UP MUCH ANY LONGER. I HAD LONG DISCUSSION WITH SON AND DAUGHTER IN LAW A FEW TIMES TO EXPLAIN THAT LIFE IS LIMITED FOR HER. I ALSO TALKED TO HER WHEN SHE WAS LUCID AND SHE WANTED TO KEEP DNR STATUS AND NOT BE RESUSCITATED. Vital Signs/Physical Exam: Temp Pulse Resp BP Pulse Ox 97.1 F 92 H 17 106/53 L 95 01/11/22 20:00 01/11/22 20:00 01/11/22 20:00 01/11/22 20:00 01/11/22 20:00 Laboratory Data at Discharge: WBC 6.0 K/uL (4.3-10.9) D 01/09/22 03:38 Hgb 10.0 g/dL (12.0-15.0) L 01/09/22 03:38 Hct 31.4 % (36.0-45.0) L 01/09/22 03:38 Plt Count 367 K/uL (152-406) 01/09/22 03:38 PT 13.3 SECONDS (9.5-12.5) H 01/08/22 14:52 INR 1.20 01/08/22 14:52 Sodium 138 mmol/L (136-145) 01/11/22 05:15 Potassium 4.0 mmol/L (3.5-5.1) 01/11/22 05:15 BUN 31 mg/dL (7-18) H 01/11/22 05:15 Creatinine 0.46 mg/dL (0.55-1.3) L 01/11/22 05:15 Glucose 97 mg/dL (74-106) 01/11/22 05:15 Magnesium 2.3 mg/dL (1.8-2.4) 01/09/22 03:44 Total Bilirubin 0.4 mg/dL (0.2-1.0) 01/08/22 14:52 AST 14 U/L (15-37) L 01/08/22 14:52 ALT 15 U/L (12-78) 01/08/22 14:52 Alkaline Phosphatase 84 U/L (45-117) 01/08/22 14:52 Triglycerides 161 mg/dL (<150) H 01/09/22 03:44 Cholesterol 198 mg/dL (<200) 01/09/22 03:44 HDL Cholesterol 63 mg/dL (40-60) H 01/09/22 03:44 Cholesterol/HDL Ratio 3.14 01/09/22 03:44 Home Medications: Ascorbic Acid [Vitamin C*] 500 mg PO DAILY 06/14/13 Cholecalciferol (Vitamin D3) [Vitamin D3] 1,000 unit PO DAILY 06/14/13 Cyanocobalamin (Vitamin B-12) [Liquid B-12] 1,000 mcg PO DAILY 06/14/13 Fluticasone/Salmeterol [Advair 250/50 Diskus*] 1 puff IH BID PRN 01/09/22 predniSONE [Deltasone*] 10 mg PO DAILY 01/09/22 Followup: Abad Ritchie MD [Primary Care Provider] -
[2022-01-11 21:45] VITALS: O2SAT 95
[2022-01-12] MEDS ORDERED: VANCOMYCIN 1 GM in NA CHLORIDE 0.9% 250 ML IVPB SCH (05:00)
== END 2022-01-11 21:04 | disposition hospice, inpatient (51) | DRG 193 ==
LOC: ER 14:23 → ERHOLD 19:13 → 2ND 01-09 13:51
PROVIDERS: ADMIT Internal Medicine; ATTEND Internal Medicine
PROC: 5A09357 Assistance with Respiratory Ventilation, Less than 24 Consecutive Hours, Continuous Positive Airway Pressure (ICD-10-PCS; 2022-01-08)
PROC: 5A0945A Assistance with Respiratory Ventilation, 24-96 Consecutive Hours, High Flow/Velocity Cannula (ICD-10-PCS; principal; 2022-01-09)
DX: J15.9 Unspecified bacterial pneumonia (principal); J96.22 Acute and chronic respiratory failure with hypercapnia; J96.21 Acute and chronic respiratory failure with hypoxia; R64 Cachexia; J44.0 Chronic obstructive pulmonary disease with (acute) lower respiratory infection; R40.4 Transient alteration of awareness; Z68.22 Body mass index [BMI] 22.0-22.9, adult; Z66 Do not resuscitate; Z88.0 Allergy status to penicillin; Z20.822 Contact with and (suspected) exposure to COVID-19
CPT/HCPCS: 36415; 71045; 71250; 80048; 80061; 80076; 80202; 82805; 83605; 83735; 83880; 84145; 84484; 85025; 85610; 87040; 87804; 93005; 94002; 94003; 94640; 94660; 94760; 96365; 96372; 96375; 97161; 97530; 99285; J1120; J1650; J2920; J2930; J3370; J3490; J7050; U0003

== ENCOUNTER 2022-01-11 21:24 | Inpatient (IN) | payer BC, OTHER ==
[2022-01-11] MEDS ORDERED: SCOPOLAMINE HYDROBROMIDE PATCH TD SCH (22:00)
[2022-01-11 22:23] VITALS: BMI 22.6
[2022-01-11] MEDS: HYDROMORPHONE HCL 1 MG/ML INJ IV SCH (22:46)
[2022-01-11] MEDS: LORazepam 2 MG/ML VIAL IV SCH (22:47)
[2022-01-12] MEDS: HYDROMORPHONE HCL 1 MG/ML INJ IV SCH ×7 (01:00→19:00)
[2022-01-12] MEDS: LORazepam 2 MG/ML VIAL IV SCH ×7 (01:00→19:00)
[2022-01-12] MEDS ORDERED: SCOPOLAMINE HYDROBROMIDE PATCH TD SCH (09:00)
[2022-01-12 15:14] VITALS: O2SAT 70
[2022-01-12 16:09] VITALS: TEMP 96.8
--- NOTE | 2022-01-12 16:39 | P.HP ---
Certification for Inpatient Patient admitted to: Inpatient With expected LOS: >2 Midnights Patient will require the following post-hospital care: Hospice Practitioner: I am a practitioner with admitting privileges, knowledge of patient current condition, hospital course, and medical plan of care. Services: Services provided to patient in accordance with Admission requirements found in Title 42 Section 412.3 of the Code of Federal Regulations Patient History Date of Service: 01/12/22 Reason for admission: ADMISSION FOR HOSPICE History of Present Illness: KELLY IS AN END STAGE COPD PATIENT WHOSE PCO2 STAYS ABOUT 100 AND SHE IS UNCONSCIOUS FROM NOT BEING ABLE TO CLEAR CARBON DIOXIDE. SHE CAME WITH A LARGE PNEUMONIA THAT FAILED TO IMPROVE AND SHE GOT WORSE. THIS IS NOT UNEXPECTED WITH COPD. SHE WILL NOT SURVIVE MORE THAN A COUPLE OF DAYS MOST LIKELY. SHE WHNE LUCID TOLD ME THAT SHE SHANKAR NOT WANT ANY RESUSCITATION. SHE IS DNR. Allergies iodine Allergy (Intermediate, Verified 06/14/13 23:07) Hives/Rash Penicillins Allergy (Intermediate, Verified 06/14/13 23:09) Itching/Hives/Rash Home medications list reviewed: Yes Home Medications: Ascorbic Acid [Vitamin C*] 500 mg PO DAILY 06/14/13 Cholecalciferol (Vitamin D3) [Vitamin D3] 1,000 unit PO DAILY 06/14/13 Cyanocobalamin (Vitamin B-12) [Liquid B-12] 1,000 mcg PO DAILY 06/14/13 Fluticasone/Salmeterol [Advair 250/50 Diskus*] 1 puff IH BID PRN 01/09/22 predniSONE [Deltasone*] 10 mg PO DAILY 01/09/22 - Past Medical/Surgical History Has patient received pneumonia vaccine in the past: Yes Diabetic: No -: Severe terminal COPD - Social History Smoking Status: Current every day smoker Alcohol use: No CD- Drugs: No Caffeine use: Yes Review of Systems is unable to be obtained Physical Examination - Vital Signs Temperature: 96.8 F Pulse: 69 Respirations: 16 Pulse Ox (%): 66 - Physical Exam General: Mild distress, Comatose HEENT: Atraumatic, PERRLA, Mucous membr. moist/pink, EOMI, Sclerae nonicteric Neck: Supple, 2+ carotid pulse no bruit, No LAD, Without JVD or thyroid abnormality Respiratory: Diminished Cardiovascular: Regular rate/rhythm Gastrointestinal: Normal bowel sounds, No tenderness Musculoskeletal: No tenderness Integumentary: No rashes Neurological: Normal gait, Normal speech, Normal strength at 5/5 x4 extr, Normal tone, Normal affect Lymphatics: No axilla or inguinal lymphadenopathy Assessment and Plan - Problems (Diagnosis) (1) COPD with hypoxia Current Visit: No Status: Chronic Plan: END STAGE COPD. WE WILL KEEP HER COMFORTABLE. DR. JAMES ALSO AGREED WITH DNR AND HOSPICE. SHE HAS A FEW DAYS TO LIVE. WE WILL GIVE DILAUDID, ATIVAN ETC FOR COMFORT CARE. I HAD DISCUSSION WITH SON AND DAUGHTER IN LAW. THEY ALL AGREE AND WANT TO KEEP HER COMFORTABLE. - Advance Directives Does patient have a Living Will: No Does patient have a Durable POA for Healthcare: No
--- NOTE | 2022-01-13 21:24 | P.DS ---
Admission Date: 01/11/22 Discharge Date: 01/13/22 Disposition: Discharge Condition: Reason for Admission: ADMISSION FOR HOSPICE - Problems (1) COPD with hypoxia Status: Chronic Brief History of Present Illness: KELLY IS AN END STAGE COPD PATIENT WHOSE PCO2 STAYS ABOUT 100 AND SHE IS UNCONSCIOUS FROM NOT BEING ABLE TO CLEAR CARBON DIOXIDE. SHE CAME WITH A LARGE PNEUMONIA THAT FAILED TO IMPROVE AND SHE GOT WORSE. THIS IS NOT UNEXPECTED WITH COPD. SHE WILL NOT SURVIVE MORE THAN A COUPLE OF DAYS MOST LIKELY. SHE WHNE LUCSTEPHEN TOLD ME THAT SHE SHANKAR NOT WANT ANY RESUSCITATION. SHE IS DNR. Hospital Course: KELLY VARELA FROM RESPIRATORY FAILURE DUE TO SEVERE COPD AND PNEUMONIA. SHE WAS ON HOSPICE FOR LAST TWO DAYS. Vital Signs/Physical Exam: Temp Pulse Resp BP Pulse Ox 96.8 F 69 16 66 L 01/12/22 16:41 01/12/22 16:41 01/12/22 16:41 01/12/22 16:41 Home Medications: Ascorbic Acid [Vitamin C*] 500 mg PO DAILY 06/14/13 Cholecalciferol (Vitamin D3) [Vitamin D3] 1,000 unit PO DAILY 06/14/13 Cyanocobalamin (Vitamin B-12) [Liquid B-12] 1,000 mcg PO DAILY 06/14/13 Fluticasone/Salmeterol [Advair 250/50 Diskus*] 1 puff IH BID PRN 01/09/22 predniSONE [Deltasone*] 10 mg PO DAILY 01/09/22
--- OUTSIDE RECORDS SUMMARY | 2022-01-28 08:55 | XMS REPORT | Continuity of Care Document ---
:1945 Author Organization [facility] Address [facility] Zimmerman [address] [place] [id number] Care Team Providers Name Role Phone Edwar_C Attending Clinician Unavailable Edwar_C Admitting Clinician Unavailable Payers Payer Name Policy Type Policy Number Effective Date Expiration Date S lisbeth [place]: [id number] 2009 [employer] 00:00:00 [place] [id number] 2012 00:00:00 Problems This patient has no known problems. Allergies, Adverse Reactions, Alerts This patient has no known allergies or adverse reactions. Medications This patient has no known medications. Procedures This patient has no known procedures. Encounters Start End Encounter Admission Attending Care Care Encounter Source Date/Time Date/Time Type Type Clinicians Facility Department ID 2016-06-02 2016-06-02 Outpatient Edwar_C [id number] 03:16:00 03:16:00 [facility] Results This patient has no known results.
== END 2022-01-12 21:56 | disposition expired | DRG 951 ==
LOC: 2ND 21:24
PROVIDERS: ADMIT Internal Medicine; ATTEND Internal Medicine
DX: Z51.5 Encounter for palliative care (principal); J96.91 Respiratory failure, unspecified with hypoxia; J18.9 Pneumonia, unspecified organism; J44.0 Chronic obstructive pulmonary disease with (acute) lower respiratory infection
CPT/HCPCS: 94660; J1170